=== PATIENT | male | born 1980 | race African-American/Black ===

== ENCOUNTER 2022-01-13 11:24 | Emergency (ER) | payer OTHER ==
[~2022-01-13] VITALS: Ht 190.5 cm; Wt 79.4 kg
[~2022-01-13 11:24] MED LIST: CETI-55 PO; DULO20EC PO; GABA400C PO; MORP60TE50 PO; OXYC10TE14 PO; TIZA-313 PO; TRAZ-307 PO
[2022-01-13 11:36] VITALS: BP 134/56
--- NOTE | 2022-01-13 11:42 | NUR ---
PT W/C ASSISTED TO BED 03.
--- NOTE | 2022-01-13 11:55 | NUR ---
41M presents to ED with c/o buttock pain s/p ground level fall, right foot 3rd digit wound x2days. Pt reports he is paraplegic and was attempting to transfer from / when he fell onto his buttocks. Pt denies hitting head during fall. Pt reports constant, throbbing/burning like, 9/10 pain. Pt noted wound under 3rd digit of right foot, but does not know how it happened. Pt took Rx Jeevan, and oxycontin this morning at 0700 with no relief. Upon assessment, no swelling or bruising noted to buttocks, open wound noted under 3rd digit of right foot, bleeding controlled.
[2022-01-13] MEDS ORDERED: KETOROLAC 30 MG/ML VIAL IM ONE (12:45)
[2022-01-13] MEDS ORDERED: IBUP-2213 PO (13:29)
[2022-01-13 13:53] VITALS: BP 134/56
--- NOTE | 2022-01-13 13:54 | NUR ---
pt left without dx paperwork
== END 2022-01-13 13:54 | disposition home or self-care (01) ==
LOC: MED 11:24
DX: S91.114A Laceration without foreign body of right lesser toe(s) without damage to nail, initial encounter (principal); Z98.890 Other specified postprocedural states; Z79.899 Other long term (current) drug therapy; Z79.891 Long term (current) use of opiate analgesic; Z79.1 Long term (current) use of non-steroidal anti-inflammatories (NSAID); W05.0XXA Fall from non-moving wheelchair, initial encounter; Y93.89 Activity, other specified; Y92.89 Other specified places as the place of occurrence of the external cause; Y99.8 Other external cause status
CPT/HCPCS: 12001; 90471; 90715; 96372; 99284; J1885

== ENCOUNTER 2022-12-09 18:55 | Emergency (ER) | payer OTHER ==
[~2022-12-09] VITALS: Ht 190.5 cm; Wt 81.6 kg
[~2022-12-09 18:55] MED LIST changes: +IBUP-2213 PO
[2022-12-09 19:05] VITALS: BP 120/103; PULSE 110; RESP 19; TEMP 98.9; O2SAT 98
[2022-12-09] MEDS: fentaNYL citrate 0.05 MG/ML VIAL IVP ONE ×2 (19:38→19:41)
[2022-12-09] MEDS ORDERED: HYDROmorphone PFS 2 MG/ML SYR IVP ONE (19:45)
[2022-12-09] MEDS ORDERED: NACL 0.9% 1,000 ML IV ONE (19:45)
[2022-12-09] MEDS ORDERED: ceFAZolin 1,000 MG VIAL IM ONE (19:45)
[2022-12-09] MEDS ORDERED: GABAPENTIN 300 MG CAP PO ONE (20:05)
[2022-12-09] MEDS ORDERED: ONDANSETRON 4 MG/2 ML VIAL IVP ONE (20:45)
[2022-12-09] MEDS ORDERED: MORPHINE SULFATE 4 MG/ML SYR IVP ONE (20:45)
[2022-12-09 20:55] VITALS: BP 145/85; PULSE 84; RESP 25; O2SAT 98
[2022-12-09] MEDS ORDERED: cefTRIAXone 1,000 MG VIAL ONE (21:14)
[2022-12-09] MEDS ORDERED: BACITRACIN OINT 500 UNITS/GM PKT TP ONE ×2 (22:23→22:30)
[2022-12-09] MEDS ORDERED: AMOX1TAB8 PO (22:28)
[2022-12-09] MEDS ORDERED: ceFAZolin 1,000 MG VIAL ONE ×2 (22:36→22:37)
== END 2022-12-09 22:47 | disposition home or self-care (01) ==
LOC: MED 18:55
DX: S51.812A Laceration without foreign body of left forearm, initial encounter (principal); Z79.899 Other long term (current) drug therapy; Z79.2 Long term (current) use of antibiotics; Z79.1 Long term (current) use of non-steroidal anti-inflammatories (NSAID); W54.0XXA Bitten by dog, initial encounter; Y93.89 Activity, other specified; Y92.89 Other specified places as the place of occurrence of the external cause; Y99.8 Other external cause status
CPT/HCPCS: 12002; 73090; 90471; 90715; 96361; 96365; 96375; 99291; J0690; J0696; J1170; J2270; J2405; J3010; J7030; Q0092; 99285

== ENCOUNTER 2023-05-27 14:11 | Emergency (ER) | payer OTHER ==
[~2023-05-27] VITALS: Ht 190.5 cm; Wt 77.1 kg
[~2023-05-27 14:11] MED LIST changes: +AMOX1TAB8 PO
[2023-05-27 14:25] VITALS: BP 121/83; PULSE 89; RESP 18; TEMP 98.5; O2SAT 99
[2023-05-27 15:23] LABS: APPEARANCE,URINE CLEAR (CLEAR); BILIRUBIN,URINE NEGATIVE (NEGATIVE); BLOOD, URINE NEGATIVE (NEGATIVE); COLOR,URINE YELLOW (YELLOW); LEUKOCYTE ESTERASE ,URINE NEGATIVE (NEGATIVE); NITRITE, URINE NEGATIVE (NEGATIVE); PROTEIN,URINE NEGATIVE (NEGATIVE); UGLUCOSE NEGATIVE (NEGATIVE); UROBILINOGEN,URINE 0.2 EU/dL (0.2 - 1)
[2023-05-27 15:24] LABS: CALCIUM 8.2 mg/dL (8.5-10.1); CARBON DIOXIDE 30.3 mmol/L (21-32); CREATININE 0.8 mg/dL (0.6-1.3); POTASSIUM 4.3 mmol/L (3.5-5.1)
[2023-05-27 15:30] LABS: BASOPHILS # (AUTO) 0.1 K/uL (0.00-0.22); EOSINOPHILS # (AUTO) 0.2 K/uL (0-0.4); EOSINOPHILS % (AUTO) 3.3 % (0.0-4.0); HEMATOCRIT 33.8 % (36-52); HEMOGLOBIN 11.5 g/dL (12.0-18.0); LYMPHOCYTES # (AUTO) 2.1 K/uL (2.0-11.5); LYMPHOCYTES % (AUTO) 31.9 % (20.5-51.1); MEAN CORPUSCULAR HEMOGLOBIN 32 pg (27-31); MEAN CORPUSCULAR HGB CONC 34 g/dL (33-37); MEAN CORPUSCULAR VOLUME 92.5 fL (80-94); MONOCYTES # (AUTO) 0.7 K/uL (0.8-1.0); MONOCYTES % (AUTO) 10.5 % (1.7-9.3); NEUTROPHILS # (AUTO) 3.5 K/uL (1.8-7.7); NEUTROPHILS % (AUTO) 53.3 % (42.2-75.2); PLATELET COUNT (AUTO) 407 K/uL (140-450); RED BLOOD CELL COUNT(AUTO) 3.66 MIL/uL (4.20-6.10); RED CELL DISTRIBUTION WIDTH 14.2 % (11.6-13.7); WHITE BLOOD COUNT (AUTO) 6.5 K/uL (4.8-10.8)
[2023-05-27 15:42] LABS: LACTIC ACID 0.9 mmol/L (0.4-2.0)
[2023-05-27 15:43] LABS: ALBUMIN 3.4 g/dL (3.4-5.0); BILIRUBIN,DIRECT 0.1 mg/dL (0.0-0.3); TOTAL BILIRUBIN 0.2 mg/dL (0.0-1.0); TOTAL PROTEIN, SERUM 6.9 g/dL (6.4-8.2)
[2023-05-27] MEDS ORDERED: [UNRECOGNIZED DRUG - SUPPLY] TP (16:48)
[2023-05-27] MEDS ORDERED: [UNRECOGNIZED DRUG - CODE] TOP (16:48)
[2023-05-27] MEDS ORDERED: GAUZ1BAN TP (16:48)
[2023-05-27 17:20] VITALS: BP 121/83; PULSE 64; RESP 18; TEMP 98.5; O2SAT 99
== END 2023-05-27 17:20 | disposition home or self-care (01) ==
LOC: MED 14:11
DX: L89.319 Pressure ulcer of right buttock, unspecified stage (principal); G82.20 Paraplegia, unspecified; Z79.1 Long term (current) use of non-steroidal anti-inflammatories (NSAID); Z79.899 Other long term (current) drug therapy
CPT/HCPCS: 36415; 72170; 80048; 80076; 81003; 83605; 85025; 87040; 99285